=== PATIENT | male | born 2000 ===

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

== ENCOUNTER 2020-06-05 15:24 | Outpatient (CLI) | payer BC ==
--- NOTE | 2020-06-05 15:36 | RAD ---
XR Chest Pa Lat STANDARD History: Cough Comparison: Radiograph 2007 Findings: Lungs are clear. No pneumothorax or effusion. Cardiac silhouette and mediastinal contours a re within normal limits. No acute osseous abnormality. Impression: No acute intrathoracic abnormality.
== END 2020-06-05 15:25 | disposition home or self-care (01) ==
LOC: RAD-FRANK 15:24
PROVIDERS: ATTEND Nurse Practitioner Family
DX: R05 Cough (principal)
CPT/HCPCS: 71046